=== PATIENT | female | born 1970 | race American Indian/Alaskan Native ===

== ENCOUNTER 2019-03-05 17:24 | Inpatient (IN) | payer OTHER ==
[2019-03-05] MEDS ORDERED: ASPIRIN 325 MG TAB PO ONE (17:46)
--- NOTE | 2019-03-05 17:49 | Event Note ---
ED Screening Note Date of service: 03/05/19 Time: 17:44 ED Screening Note: This is a 49 y.o. F. that presents to the ER with chest pain started today while at work today. PMH of sleep apnea, PE, CABG on blood thinners, HLD, depression, HTN, insomnia Patient also reports blood in stool last night. This initial assessment/diagnostic orders/clinical plan/treatment(s) is/are subject to change based on patients health status, clinical progression and re- assessment by fellow clinical providers in the ED. Further treatment and workup at subsequent clinical providers discretion. Patient/guardian urged not to elope from the ED as their condition may be serious if not clinically assessed and managed. Initial orders include: Labs, EKG, & CXR
--- NOTE | 2019-03-05 18:28 | XRay Report ---
CHEST 2 VIEWS INDICATION / CLINICAL INFORMATION: Chest Pain. Shortness of breath. Left chest pain under the breast . History of CABG and PE. COMPARISON: None available. FINDINGS: Frontal and lateral chest radiographs demonstrate normal cardiomediastinal silhouette. Post -CABG changes. Right hemidiaphragm approximately 3 cm higher than the left. Clear lungs. Mild multile oseas thoracic spine degenerative spurring. Upper abdominal presumed cholecystectomy clips. IMPRESSION: No acute chest process with few incidental findings, as above. Signer Name: Srikanth Graham Signed: 03/05/2019 6:23 PM Workstation Name: [id number]
[2019-03-05 18:55] LABS: Hematocrit 40.9 % (30.3-42.9); Hemoglobin 13.6 gm/dl (10.1-14.3); Mean Corpuscular HGB Conc 33 % (30-34); Mean Corpuscular Volume 94 fl (79-97); Platelet Count 226 K/mm3 (140-440); Red Blood Count 4.35 M/mm3 (3.65-5.03); Red Cell Distribution Width 13.6 % (13.2-15.2)
[2019-03-05 19:30] LABS: BUN/Creatinine Ratio 10; Blood Urea Nitrogen 8 mg/dL (7-17); Calcium 9.4 mg/dL (8.4-10.2); Hemolysis Index 35
[2019-03-05 19:47] LABS: Eosinophils % (Manual) 0 % (0.0-4.3); Total Cells Counted 100
[2019-03-05 19:48] LABS: Anisocytosis 1+
[2019-03-05] MEDS ORDERED: NITROGLYCERIN 2% OINT 1 GM TP ONE (20:49)
[2019-03-05] MEDS ORDERED: fentaNYL 100 MCG/2 ML INJ IV ONE (20:49)
--- NOTE | 2019-03-05 20:57 | Emergency Department Report ---
HPI - General Chief Complaint: Chest Pain Time Seen by Provider: 03/05/19 17:43 - HPI HPI: Room 22 The patient is a 49-year-old female presenting with chief complaint chest pain and dyspnea on exertion. The patient states she tripped and fell forward 2 days ago landing on her knees. Patient states she's had some aches and pains since the fall including bilateral knees right greater than left. The patient states the past several days she's had worsening shortness of breath and dyspnea on exertion to the point where she has to sleep on extra pillows while using her CPAP. Today the patient states she developed intermittent chest pressure associ ated with nausea but no vomiting or diaphoresis. Patient currently gets her chest pain score of 5/10. Patient is currently on Xarelto for PE and is status post 2 vessel CABG approximately 6 years ago Location: [See above] Duration: [See above] Quality: [See above] Severity: [See above] Timing: [See above] Context: [See above] Modifying factors: [See above] Associated signs and symptoms: [see above] ED Past Medical Hx - Past Medical History Previous Medical History?: Yes Hx Pulmonary Embolism: Yes - Surgical History Past Surgical History?: Yes Hx Open Heart Surgery: Yes - Family History Family history: no significant - Social History Smoking Status: Never Smoker Substance Use Type: None (denies illicit drug use) ED Review of Systems ROS: Stated complaint: CHEST PAIN/SOB/BLOOD IN STOOL Other details as noted in HPI Constitutional: denies: diaphoresis Eyes: denies: eye pain ENT: denies: throat pain Respiratory: shortness of breath, SOB with exertion Cardiovascular: chest pain, dyspnea on exertion Endocrine: no symptoms reported Gastrointestinal: nausea. denies: abdominal pain, vomiting Genitourinary: denies: dysuria Musculoskeletal: arthralgia Skin: denies: lesions Neurological: denies: headache Physical Exam - Physical Exam Vital Signs: Vital Signs 03/05/19 03/05/19 03/05/19 17:41 20:15 20:16 Temperature 97.6 F Pulse Rate 55 L 75 73 Respiratory 20 18 22 Rate Blood Pressure 138/76 Blood Pressure 148/91 [Right] O2 Sat by Pulse 96 99 99 Oximetry 03/05/19 03/05/19 03/05/19 20:18 20:20 20:25 Temperature Pulse Rate 73 76 Respiratory 24 24 18 Rate Blood Pressure 138/76 138/76 Blood Pressure [Right] O2 Sat by Pulse 98 98 Oximetry Physical Exam: GENERAL: The patient is well-developed well-nourished female lying on stretcher not appearing to be in acute distress. [] HEENT: Normocephalic. Atraumatic. Extraocular motions are intact. Patient has moist mucous membranes. NECK: Supple. Trachea midline CHEST/LUNGS: Clear to auscultation. There is no respiratory distress noted. HEART/CARDIOVASCULAR: Regular. There is no tachycardia. There is no gallop rub or murmur. ABDOMEN: Abdomen is soft, nontender. Patient has normal bowel sounds. There is no abdominal distention. SKIN: There is no rash. There is no edema. There is no diaphoresis. NEURO: The patient is awake, alert, and oriented. The patient is cooperative. The patient has normal speech MUSCULOSKELETAL: There is tenderness to palpation of bilateral knees. There is no evidence of acute injury. ED Course Vital Signs 03/05/19 03/05/19 03/05/19 17:41 20:15 20:16 Temperature 97.6 F Pulse Rate 55 L 75 73 Respiratory 20 18 22 Rate Blood Pressure 138/76 Blood Pressure 148/91 [Right] O2 Sat by Pulse 96 99 99 Oximetry 03/05/19 03/05/19 03/05/19 20:18 20:20 20:25 Temperature Pulse Rate 73 76 Respiratory 24 24 18 Rate Blood Pressure 138/76 138/76 Blood Pressure [Right] O2 Sat by Pulse 98 98 Oximetry ED Medical Decision Making - Lab Data Result diagrams: 03/05/19 18:12 03/05/19 18:12 - EKG Data -: EKG Interpreted by Me EKG shows normal: sinus rhythm Rate: normal - EKG Data When compared to previous EKG there are: previous EKG unavailable Interpretation: nonspecific ST-T wave nia (T-wave inversions in leads 1, aVL, V2) - Radiology Data Radiology results: report reviewed (chest x-ray), image reviewed (chest x-ray, bilateral knee x-ray) interpreted by me: Chest x-ray-no focal infiltrate, no pneumothorax Bilateral knee x-ray-no acute fracture seen [facility] [address] [place] [address] XRay Report Signed Patient: NENA CADET MR#: [id number] : 1970 Acct:[id number] Age/Sex: 49 / F ADM Date: 03/05/19 Loc: ED Attending Dr: Ordering Physician: RUI MARCANO Date of Service: 03/05/19 Procedure(s): XR chest routine 2V Accession Number(s): [id number] cc: RUI MARCANO Fluoro Time In Minutes: CHEST 2 VIEWS INDICATION / CLINICAL INFORMATION: Chest Pain. Shortness of breath. Left chest pain under the breast. History of CABG and PE. COMPARISON: None available. FINDINGS: Frontal and lateral chest radiographs demonstrate normal cardiomediastinal silhouette. Post-CABG changes. Right hemidiaphragm approximately 3 cm higher than the left. Clear lungs. Mild multilevel thoracic spine degenerative spurring. Upper abdominal presumed cholecystectomy clips. IMPRESSION: No acute chest process with few incidental findings, as above. Signer Name: Tiara De La Fuente Signed: 03/05/2019 6:23 PM Workstation Name: [id number] Transcribed By: RS Dictated By: TIARA DE LA FUENTE MD Electronically Authenticated By: TIARA DE LA FUENTE MD Signed Date/Time: 03/05/191822 DD/ 20 TD/TT: - Differential Diagnosis ACS, pericarditis, GERD, CHF Critical care attestation.: If time is entered above; I have spent that time in minutes in the direct care of this critically ill patient, excluding procedure time. ED Disposition Clinical Impression: Chest pain, Contusion of left knee, Contusion of right knee Disposition: OP ADMIT IP TO THIS HOSP Is pt being admited?: Yes Does the pt Need Aspirin: Yes Condition: Fair Instructions: Chest Pain (ED) Time of Disposition: 21:14 (hospitalist paged (Dr Islas))
--- NOTE | 2019-03-05 21:21 | XRay Report ---
BILATERAL KNEES 4 VIEWS INDICATION / CLINICAL INFORMATION: Bilateral knee pain after fall. COMPARISON: None available. FINDINGS: BONES and JOINT(S): No acute fracture or subluxation. No significant arthritis. SOFT TISSUES: No acute abnormality. A surgical clip is seen posteriorly and medially along the right knee. ADDITIONAL FINDINGS: None. IMPRESSION: No acute abnormality of the knees. Signer Name: Nikolas Gonzales MD Signed: 03/05/2019 9:16 PM Workstation Name: [id number]
[2019-03-05] MEDS ORDERED: diphenhydrAMINE 50 MG/ML VIAL IV ONE (21:41)
[2019-03-05] MEDS ORDERED: NITROGLYCERIN 0.4 MG TAB SUBL SL PRN (22:29)
[2019-03-05] MEDS ORDERED: ACETAMINOPHEN 325 MG TAB PO PRN (22:32)
[2019-03-05] MEDS ORDERED: ONDANSETRON 4 MG/2 ML INJ IV PRN (22:33)
[2019-03-06] MEDS: MORPHINE 2 MG/1 ML INJ IV PRN ×4 (00:56→23:31)
[2019-03-06 01:03] LABS: Hematocrit 40.1 % (30.3-42.9)
[2019-03-06 01:52] LABS: Creatine Kinase MB 1.3 ng/mL (0.0-4.0)
[2019-03-06] MEDS: diphenhydrAMINE 50 MG/ML VIAL IV PRN ×4 (05:54→23:31)
--- NOTE | 2019-03-06 05:56 | History and Physical Report ---
CHIEF COMPLAINT: Chest pain. HISTORY OF PRESENT ILLNESS: The patient is a 49-year-old female who said she has been having dull chest pain located in the retrosternal and precordial area. The patient stated also that she tripped and fell with face down 2 days ago and has had aches and pains since that fall and this included pain that involves the knees with more on the right than the left. The patient said the chest pain is associated with shortness of breath and also there is associated orthopnea. The patient said the chest pain is intermittent and also associated with nausea, but no vomiting or diaphoresis, and the patient rated her chest pain as 5/10. PAST MEDICAL HISTORY: Pertinent for pulmonary embolism and coronary artery disease. PAST SURGICAL HISTORY: Pertinent for open heart surgery. FAMILY HISTORY: Noncontributory. SOCIAL HISTORY: The patient does not smoke, does not drink alcohol and does not use illicit drugs. MEDICATIONS: The patient is on atorvastatin 40 mg by mouth daily, carvedilol 12.5 mg by mouth twice daily, linaclotide or Linzess 75 mcg by mouth at bedtime, Paxil 20 mg by mouth daily, Xarelto 20 mg by mouth daily, trazodone 50 mg by mouth at bedtime. ALLERGIES: THE PATIENT IS ALLERGIC TO PENICILLIN. REVIEW OF SYSTEMS: CONSTITUTIONAL: There is no fever, no chills, no diaphoresis. HEENT: There is no headache or sore throat. CARDIOVASCULAR SYSTEM: There is chest pain, but no orthopnea. RESPIRATORY SYSTEM: There is shortness of breath and no cough. GASTROINTESTINAL SYSTEM: There is nausea, but no nausea, no vomiting, no abdominal pain, diarrhea or constipation; however, the patient reported having blood in the stool that occurred a day prior to presentation and in the morning of presentation NEUROLOGICAL SYSTEM: There is no numbness, no dizziness, no altered mental status. MUSCULOSKELETAL SYSTEM: There is pain in both knee areas with no joint swelling. DERMATOLOGICAL SYSTEM: There is no skin rash or itching. GENITOURINARY SYSTEM: There is no dysuria, hematuria, or flank pain. Rest of system review is normal. PHYSICAL EXAMINATION: GENERAL: At the time of exam, the patient was found to be alert, oriented x 3 and not in acute distress. VITAL SIGNS: At the initial time of presentation showed temperature of 97.6 degrees Fahrenheit, pulse of 55, respirations 20, blood pressure 148/91, O2 sat of 96% on room air. HEENT: Pupils to be equal, round, reactive to light and accommodating. Extraocular muscles are intact. NECK: Supple with no JVD or carotid bruit. CARDIOVASCULAR SYSTEM: Showed normal first and second heart sounds with no gallops or murmurs. RESPIRATORY SYSTEM: Showed good air entry on both sides of the lungs with no abnormal breath sounds. GASTROINTESTINAL SYSTEM: Show abdomen to be full, soft, nontender with no organomegaly or rigidity. NEUROLOGIC: Shows no focal deficit. MUSCULOSKELETAL SYSTEM: Show no joint swelling or tenderness. DERMATOLOGICAL SYSTEM: Show no skin rash. GENITOURINARY SYSTEM: Showing no costovertebral angle tenderness. PERTINENT LABORATORY AND IMAGING STUDIES: The patient had chest x-ray done that shows no acute cardiopulmonary process. Also, the patient had knee x-ray done that showed no acute abnormalities. Lab results, the patient has CBC done with normal white count, normal hemoglobin and normal hematocrit with CBC differential showing elevated lymphocyte count of 49% and elevated monocyte count of 9%. The patient's chemistry was unremarkable. The patient's cardiac enzymes were also unremarkable. Brain natriuretic peptide level came back unremarkable. DIAGNOSES: 1. Chest pain. 2. Rectal bleeding. PLAN OF CARE: 1. The patient will be admitted to telemetry. 2. The patient will have serial cardiac enzyme involving troponin, total CK, and CK-MB checked every 6 hours x 2 more levels. 3. The patient will remain n.p.o. and will have a Lexiscan stress test. 4. The patient will remain n.p.o. 5. The patient will have Cardiology consult with Dr. Serrano. 6. The patient will have a GI consult with [facility] with Dr. Randy Savage listed. 7. The patient will be on IV morphine 2 mg every 3 hours as needed for pain and IV Zofran 4 mg every 8 hours for nausea and vomiting. 8. The patient will be on nitro paste half inch to anterior chest wall q.i.d. and will be on Nitrostat 0.4 mg sublingual every 5 minutes as needed for breakthrough chest pain. 9. The patient will be on Tylenol 650 mg by mouth every 4 hours as needed for fever and headache. 10. The patient will be on oxygen by nasal cannula 2 liters per minute. 11. The patient will not be placed on heparin or aspirin because of rectal bleed. JOB# [id number] OCN/NTS
[2019-03-06 07:17] LABS: Hematocrit 37.8 % (30.3-42.9); Hemoglobin 12.8 gm/dl (10.1-14.3)
[2019-03-06 07:35] LABS: Creatine Kinase MB 1.4 ng/mL (0.0-4.0)
--- NOTE | 2019-03-06 09:22 | Progress Note ---
Assessment and Plan Assessment and plan: Patient is a 49 yo woman with a history of PINA on CPAP, PE on Xarelto, HLD, depression, HTN, insomnia and CABG who presented to [facility] ED with chest pains and sob. She had a mechanical fall 2 days ago, she tripped while exercising/walking and injured her knees. She fell forward and landed on her stomach. She that fall she has been feeling poorly. After the fall she noticed maroon like blood in the toliet bowel/Bm, very small amount x 2 episodes associated with abd pains. * 2v CXR IMPRESSION: No acute chest process with few incidental findings (Right hemidiaphragm approximately 3 cm higher than the left. Clear lungs. Mild multilevel thoracic spine degenerative spurring. Upper abdominal presumed ch olecystectomy clips) * Bilateral knee x-ray-no acute fracture seen Chest pains: stress test Rectal bleeding per Dr. Islas without any specifics: GI was consulted, more collateral history needed Bilateral breast ulcers: consult wound care H/O PE on Anticoagulation Mechanical fall with bilateral knee pains: tylenol for pain History Interval history: Patient was seen and examined. Follow-up on current diagnosis of CP. No overnight events reported to me. Patient denies any nausea/vomiting or severe headaches. Imaging, nursing note, chart, labs and old chart reviewed. Discussed with patient. Hospitalist Physical - Physical exam Narrative exam: Gen: WDWN, NAD, Awake, Alert, Orientated HEENT: NCAT, EOMI, PERRL, OP Clear Neck: supple, no adenopathy, no thyromegaly, no JVD CVS/Heart: RRR, normal S1S2, pulses present bilaterally Chest/Lungs: CTA B, Symmetrical chest expansion, good air entry bilaterally GI/Abdomen: soft, NTND, good bowel sounds, no guarding or rebound /Bladder: no suprapubic tenderness, no CVA or paraspinal tenderness Extermity/Skin: 2 swallow left breast nickel size ulcers MSK: FROM x 4, bilateral knee tender Neuro: CN 2-12 grossly intact, no new focal deficits Psych: calm - Constitutional Vitals: Temp Pulse Resp BP Pulse Ox 97.5 F L 74 14 126/78 95 03/06/19 07:42 03/06/19 07:42 03/06/19 07:42 03/06/19 07:42 03/06/19 07:42 Results - Labs CBC & Chem 7: 03/06/19 06:46 03/05/19 18:12 Labs: Laboratory Last Values WBC 4.6 K/mm3 (4.5-11.0) 03/05/19 18:12 RBC 4.35 M/mm3 (3.65-5.03) 03/05/19 18:12 Hgb 12.8 gm/dl (10.1-14.3) 03/06/19 06:46 Hct 37.8 % (30.3-42.9) 03/06/19 06:46 MCV 94 fl (79-97) 03/05/19 18:12 MCH 31 pg (28-32) 03/05/19 18:12 MCHC 33 % (30-34) 03/05/19 18:12 RDW 13.6 % (13.2-15.2) 03/05/19 18:12 Plt Count 226 K/mm3 (140-440) 03/05/19 18:12 Lymph % (Auto) [place] 03/05/19 18:12 Add Manual Diff Complete 03/05/19 18:12 Total Counted 100 03/05/19 18:12 Seg Neutrophils % [place] 03/05/19 18:12 Seg Neuts % (Manual) 40.0 % (40.0-70.0) 03/05/19 18:12 0 % 03/05/19 18:12 49.0 % (13.4-35.0) H 03/05/19 18:12 Reactive Lymphs % (Man) 0 % 03/05/19 18:12 9.0 % (0.0-7.3) H 03/05/19 18:12 0 % (0.0-4.3) 03/05/19 18:12 1.0 % (0.0-1.8) 03/05/19 18:12 0 % 03/05/19 18:12 1.0 % 03/05/19 18:12 0 % 03/05/19 18:12 0 % 03/05/19 18:12 Nucleated RBC % Not Reportable 03/05/19 18:12 Seg Neutrophils # Man 1.8 K/mm3 (1.8-7.7) 03/05/19 18:12 Band Neutrophils # 0.0 K/mm3 03/05/19 18:12 2.3 K/mm3 (1.2-5.4) 03/05/19 18:12 Abs React Lymphs (Man) 0.0 K/mm3 03/05/19 18:12 0.4 K/mm3 (0.0-0.8) 03/05/19 18:12 0.0 K/mm3 (0.0-0.4) 03/05/19 18:12 0.0 K/mm3 (0.0-0.1) 03/05/19 18:12 0.0 K/mm3 03/05/19 18:12 0.0 K/mm3 03/05/19 18:12 0.0 K/mm3 03/05/19 18:12 Blast Cells # 0.0 K/mm3 03/05/19 18:12 WBC Morphology Not Reportable 03/05/19 18:12 Hypersegmented Neuts Not Reportable 03/05/19 18:12 Hyposegmented Neuts Not Reportable 03/05/19 18:12 Hypogranular Neuts Not Reportable 03/05/19 18:12 Not Reportable 03/05/19 18:12 Not Reportable 03/05/19 18:12 Not Reportable 03/05/19 18:12 Not Reportable 03/05/19 18:12 Not Reportable 03/05/19 18:12 Not Reportable 03/05/19 18:12 Appears normal 03/05/19 18:12 Not Reportable 03/05/19 18:12 Plt Clumps, EDTA Not Reportable 03/05/19 18:12 Not Reportable 03/05/19 18:12 Not Reportable 03/05/19 18:12 Not Reportable 03/05/19 18:12 Plt Morphology Comment Not Reportable 03/05/19 18:12 RBC Morphology Not Reportable 03/05/19 18:12 Dimorphic RBCs Not Reportable 03/05/19 18:12 Not Reportable 03/05/19 18:12 Not Reportable 03/05/19 18:12 Not Reportable 03/05/19 18:12 1+ 03/05/19 18:12 Not Reportable 03/05/19 18:12 Not Reportable 03/05/19 18:12 Not Reportable 03/05/19 18:12 Not Reportable 03/05/19 18:12 Not Reportable 03/05/19 18:12 Not Reportable 03/05/19 18:12 Not Reportable 03/05/19 18:12 Not Reportable 03/05/19 18:12 Not Reportable 03/05/19 18:12 Not Reportable 03/05/19 18:12 Not Reportable 03/05/19 18:12 Not Reportable 03/05/19 18:12 Not Reportable 03/05/19 18:12 Not Reportable 03/05/19 18:12 Not Reportable 03/05/19 18:12 Acanthocytes (Spur) Not Reportable 03/05/19 18:12 Rouleaux Not Reportable 03/05/19 18:12 Not Reportable 03/05/19 18:12 Not Reportable 03/05/19 18:12 Not Reportable 03/05/19 18:12 Not Reportable 03/05/19 18:12 Hem Pathologist Commnt No 03/05/19 18:12 Sodium 142 mmol/L (137-145) 03/05/19 18:12 Potassium 3.7 mmol/L (3.6-5.0) 03/05/19 18:12 Chloride 101.8 mmol/L (98-107) 03/05/19 18:12 Carbon Dioxide 22 mmol/L (22-30) 03/05/19 18:12 22 mmol/L 03/05/19 18:12 BUN 8 mg/dL (7-17) 03/05/19 18:12 0.8 mg/dL (0.7-1.2) 03/05/19 18:12 Estimated GFR > 60 ml/min 03/05/19 18:12 10 % 03/05/19 18:12 Glucose 115 mg/dL (65-100) H 03/05/19 18:12 Calcium 9.4 mg/dL (8.4-10.2) 03/05/19 18:12 172 units/L (30-135) H 03/06/19 06:46 CK-MB (CK-2) 1.4 ng/mL (0.0-4.0) 03/06/19 06:46 CK-MB (CK-2) Rel Index 0.8 (0-4) 03/06/19 06:46 < 0.010 ng/mL (0.00-0.029) 03/06/19 06:46 NT-Pro-B Natriuret Pep 12.93 pg/mL (0-450) 03/05/19 20:18 Active Medications - Current Medications Current Medications: Generic Name Dose Route Start Last Admin Trade Name Freq PRN Reason Stop Dose Admin Acetaminophen 650 mg 03/05/19 22:32 Tylenol PO Q4H PRN Headache Diphenhydramine HCl 25 mg 03/06/19 05:01 03/06/19 05:54 Benadryl IV 25 mg Q6H PRN Administration Itching Morphine Sulfate 2 mg 03/05/19 22:28 03/06/19 00:56 Morphine IV 2 mg Q3H PRN Administration Pain, Moderate (4-6) Nitroglycerin 0.5 inch 03/06/19 06:00 Nitro-Bid 2% TP QIDNTG MAYCOL Protocol Nitroglycerin 0.4 mg 03/05/19 22:29 Nitrostat SL .Q5MIN PRN Chest Pain Ondansetron HCl 4 mg 03/05/19 22:33 Zofran IV Q8H PRN Nausea And Vomiting
[2019-03-06] MEDS: NITROGLYCERIN 2% OINT 1 GM TP SCH ×2 (10:11→14:57)
--- NOTE | 2019-03-06 11:39 | Gastroenterology Consultation ---
History of Present Illness - Reason for Consult Consult date: 03/06/19 rectal bleeding Requesting physician: MAYUR COOK - History of Present Illness 49 yo female with pmh of HTN, CAD s/p CABG, h/o PE on xarelto, and chronic constipation on linzess every other day admitted for chest pain and sob. Gi consulted for 2 day h/o rectal bleeding. She reports having two episode of rectal bleeding (one on Friday and another episode on prior to admission). Reports abdominal pain/soreness after falling forward on her abdomen. No nausea/vomiting. Wants to eat. Follows up with [facility] office at [place] for chronic constipation and has been on linzess every other day. No BM today or yesterday. Last colonoscopy about 3 years and normal per patient. Medication list reviewed Past History Past Medical History: CAD, pulmonary embolism, other (constipation) Past Surgical History: CABG Medications and Allergies Allergies Allergy/AdvReac Type Severity Reaction Status Date / Time Penicillins Allergy Rash Verified 03/05/19 17:28 Home Medications Medication Instructions Recorded Confirmed Last Taken Type AtorvaSTATin [Lipitor] 40 mg PO QHS 03/05/19 03/05/19 Unknown History Carvedilol [Coreg] 12.5 mg PO BID 03/05/19 03/05/19 Unknown History Linaclotide [Linzess] 72 mcg PO QHS 03/05/19 03/05/19 Unknown History PARoxetine [Paxil] 20 mg PO DAILY 03/05/19 03/05/19 Unknown History Rivaroxaban [Xarelto] 20 mg PO QDAY 03/05/19 03/05/19 Unknown History traZODone [Desyrel] 50 mg PO QHS 03/05/19 03/05/19 Unknown History Active Meds: Active Medications Acetaminophen (Tylenol) 650 mg PO Q4H PRN PRN Reason: Headache Bisacodyl (Dulcolax) 10 mg PO QDAY PRN PRN Reason: Constipation Diphenhydramine HCl (Benadryl) 25 mg IV Q6H PRN PRN Reason: Itching Last Admin: 03/06/19 05:54 Dose: 25 mg Documented by: Morphine Sulfate (Morphine) 2 mg IV Q3H PRN PRN Reason: Pain, Moderate (4-6) Last Admin: 03/06/19 00:56 Dose: 2 mg Documented by: Nitroglycerin (Nitro-Bid 2%) 0.5 inch TP QIDNTG MAYCOL; Protocol Nitroglycerin (Nitrostat) 0.4 mg SL .Q5MIN PRN PRN Reason: Chest Pain Ondansetron HCl (Zofran) 4 mg IV Q8H PRN PRN Reason: Nausea And Vomiting Polyethylene Glycol (Miralax 3350) 17 gm PO QDAY [facility] Review of Systems - Review of Systems All systems: negative Constitutional: no weight loss Cardiovascular: chest pain Respiratory: shortness of breath Gastrointestinal: abdominal pain, constipation, BRBPR, hematochezia, no nausea, no vomiting Rectal: bleeding, no pain Neurological: weakness Exam - Constitutional Vital Signs: Temp Pulse Resp BP Pulse Ox 97.5 F L 74 14 126/78 100 03/06/19 07:42 03/06/19 07:42 03/06/19 07:42 03/06/19 07:42 03/06/19 09:23 General appearance: no acute distress - EENT Eyes: EOM intact ENT: hearing intact - Neck Neck: supple - Respiratory Respiratory effort: normal Respiratory: bilateral: CTA - Cardiovascular Rhythm: regular Heart Sounds: Present: S1 & S2 - Gastrointestinal General gastrointestinal: Present: soft, tender, non-distended - Integumentary Integumentary: Present: clear, warm - Neurologic Neurological: alert and oriented x3 - Labs CBC & Chem 7: 03/06/19 06:46 03/05/19 18:12 Lab Results: Laboratory Results - last 24 hr 03/05/19 03/05/19 03/05/19 18:12 18:12 20:18 WBC 4.6 RBC 4.35 Hgb 13.6 Hct 40.9 MCV 94 MCH 31 MCHC 33 RDW 13.6 Plt Count 226 Lymph % (Auto) Maintenance Equipment Operator Add Manual Diff Complete Total Counted 100 Seg Neutrophils % Maintenance Equipment Operator Seg Neuts % (Manual) 40.0 Band Neutrophils % 0 Lymphocytes % (Manual) 49.0 H Reactive Lymphs % (Man) 0 Monocytes % (Manual) 9.0 H Eosinophils % (Manual) 0 Basophils % (Manual) 1.0 Metamyelocytes % 0 Myelocytes % 1.0 Promyelocytes % 0 Blast Cells % 0 Nucleated RBC % Not Reportable Seg Neutrophils # Man 1.8 Band Neutrophils # 0.0 Lymphocytes # (Manual) 2.3 Abs React Lymphs (Man) 0.0 Monocytes # (Manual) 0.4 Eosinophils # (Manual) 0.0 Basophils # (Manual) 0.0 Metamyelocytes # 0.0 Myelocytes # 0.0 Promyelocytes # 0.0 Blast Cells # 0.0 WBC Morphology Not Reportable Hypersegmented Neuts Not Reportable Hyposegmented Neuts Not Reportable Hypogranular Neuts Not Reportable Smudge Cells Not Reportable Toxic Granulation Not Reportable Toxic Vacuolation Not Reportable Dohle Bodies Not Reportable Pelger-Huet Anomaly Not Reportable Lavell Rods Not Reportable Platelet Estimate Appears normal Clumped Platelets Not Reportable Plt Clumps, EDTA Not Reportable Large Platelets Not Reportable Giant Platelets Not Reportable Platelet Satelliting Not Reportable Plt Morphology Comment Not Reportable RBC Morphology Not Reportable Dimorphic RBCs Not Reportable Polychromasia Not Reportable Hypochromasia Not Reportable Poikilocytosis Not Reportable Anisocytosis 1+ Microcytosis Not Reportable Macrocytosis Not Reportable Spherocytes Not Reportable Pappenheimer Bodies Not Reportable Sickle Cells Not Reportable Target Cells Not Reportable Tear Drop Cells Not Reportable Ovalocytes Not Reportable Helmet Cells Not Reportable Bruno-Wacissa Bodies Not Reportable Ward Rings Not Reportable [place] Cells Not Reportable Bite Cells Not Reportable Crenated Cell Not Reportable Elliptocytes Not Reportable Acanthocytes (Spur) Not Reportable Rouleaux Not Reportable Hemoglobin C Crystals Not Reportable Schistocytes Not Reportable Malaria parasites Not Reportable Sriram Bodies Not Reportable Hem Pathologist Commnt No Sodium 142 Potassium 3.7 Chloride 101.8 Carbon Dioxide 22 Anion Gap 22 BUN 8 Creatinine 0.8 Estimated GFR > 60 BUN/Creatinine Ratio 10 Glucose 115 H Calcium 9.4 Total Creatine Kinase CK-MB (CK-2) CK-MB (CK-2) Rel Index Troponin T < 0.010 < 0.010 NT-Pro-B Natriuret Pep 03/05/19 03/05/19 03/06/19 20:18 23:53 00:00 WBC RBC Hgb Hct MCV MCH MCHC RDW Plt Count Lymph % (Auto) Add Manual Diff Total Counted Seg Neutrophils % Seg Neuts % (Manual) Band Neutrophils % Lymphocytes % (Manual) Reactive Lymphs % (Man) Monocytes % (Manual) Eosinophils % (Manual) Basophils % (Manual) Metamyelocytes % Myelocytes % Promyelocytes % Blast Cells % Nucleated RBC % Seg Neutrophils # Man Band Neutrophils # Lymphocytes # (Manual) Abs React Lymphs (Man) Monocytes # (Manual) Eosinophils # (Manual) Basophils # (Manual) Metamyelocytes # Myelocytes # Promyelocytes # Blast Cells # WBC Morphology Hypersegmented Neuts Hyposegmented Neuts Hypogranular Neuts Smudge Cells Toxic Granulation Toxic Vacuolation Dohle Bodies Pelger-Huet Anomaly Lavell Rods Platelet Estimate Clumped Platelets Plt Clumps, EDTA Large Platelets Giant Platelets Platelet Satelliting Plt Morphology Comment RBC Morphology Dimorphic RBCs Polychromasia Hypochromasia Poikilocytosis Anisocytosis Microcytosis Macrocytosis Spherocytes Pappenheimer Bodies Sickle Cells Target Cells Tear Drop Cells Ovalocytes Helmet Cells Bruno-Wacissa Bodies Ward Rings Doug Cells Bite Cells Crenated Cell Elliptocytes Acanthocytes (Spur) Rouleaux Hemoglobin C Crystals Schistocytes Malaria parasites Sriram Bodies Hem Pathologist Commnt Sodium Potassium Chloride Carbon Dioxide Anion Gap BUN Creatinine Estimated GFR BUN/Creatinine Ratio Glucose Calcium Total Creatine Kinase 178 H CK-MB (CK-2) 1.3 CK-MB (CK-2) Rel Index 0.7 Troponin T < 0.010 NT-Pro-B Natriuret Pep 12.93 03/06/19 03/06/19 03/06/19 00:30 06:46 06:46 WBC RBC Hgb 13.0 12.8 Hct 40.1 37.8 MCV MCH MCHC RDW Plt Count Lymph % (Auto) Add Manual Diff Total Counted Seg Neutrophils % Seg Neuts % (Manual) Band Neutrophils % Lymphocytes % (Manual) Reactive Lymphs % (Man) Monocytes % (Manual) Eosinophils % (Manual) Basophils % (Manual) Metamyelocytes % Myelocytes % Promyelocytes % Blast Cells % Nucleated RBC % Seg Neutrophils # Man Band Neutrophils # Lymphocytes # (Manual) Abs React Lymphs (Man) Monocytes # (Manual) Eosinophils # (Manual) Basophils # (Manual) Metamyelocytes # Myelocytes # Promyelocytes # Blast Cells # WBC Morphology Hypersegmented Neuts Hyposegmented Neuts Hypogranular Neuts Smudge Cells Toxic Granulation Toxic Vacuolation Dohle Bodies Pelger-Huet Anomaly Lavell Rods Platelet Estimate Clumped Platelets Plt Clumps, EDTA Large Platelets Giant Platelets Platelet Satelliting Plt Morphology Comment RBC Morphology Dimorphic RBCs Polychromasia Hypochromasia Poikilocytosis Anisocytosis Microcytosis Macrocytosis Spherocytes Pappenheimer Bodies Sickle Cells Target Cells Tear Drop Cells Ovalocytes Helmet Cells Bruno-Wacissa Bodies Ward Rings Doug Cells Bite Cells Crenated Cell Elliptocytes Acanthocytes (Spur) Rouleaux Hemoglobin C Crystals Schistocytes Malaria parasites Sriram Bodies Hem Pathologist Commnt Sodium Potassium Chloride Carbon Dioxide Anion Gap BUN Creatinine Estimated GFR BUN/Creatinine Ratio Glucose Calcium Total Creatine Kinase 172 H CK-MB (CK-2) 1.4 CK-MB (CK-2) Rel Index 0.8 Troponin T < 0.010 NT-Pro-B Natriuret Pep Assessment and Plan 49 yo female with pmh of HTN, CAD s/p CABG, h/o PE on xarelto, and chronic constipation on linzess every other day admitted for chest pain and sob. Gi con sulted for 2 day h/o rectal bleeding. # Rectal bleeding. - likely anorectal origin. h/o chronic constipation and on linzess every other day. - last BM yesterday morning prior to admission with blood in the stool. - H/H stable and normal. - no plans for colonoscopy at this time. - bowel regimen with miralax and dulcolax. - monitor H/H. - work up for chest pain
[2019-03-06] MEDS: POLYETHYLENE GLYCOL 3350 17 GM POWDER PO SCH (12:03)
[2019-03-06] MEDS: atenoloL 25 MG TAB PO SCH (17:48)
--- NOTE | 2019-03-07 04:56 | Consultation ---
REASON FOR EVALUATION: Chest pain. 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 Henry, comes to the Emergency Room complaining about chest discomfort. Yesterday morning, the patient had significant chest pain associated with difficulty in breathing and she has noticed intermittent chest pain with exertion within the past couple of days. Pain is described as tightness and pressure type of discomfort. Today, the chest pain is somewhat better. Yesterday, the pain lasted throughout the day intermittently. She also felt as though the heart is beating irregular. The patient also had difficulty in breathing. The patient is known to have coronary artery disease and had bypass surgery in [facility] about 6 years ago. Last stress test was apparently done about 3 years ago. The patient is known to have hypertension and hyperlipidemia for about 6 years. No history of diabetes. Recently, she tripped and fell and complains about leg pains. Two weeks following her bypass surgery 6 years ago, the patient had pulmonary embolism and after evaluated by team member, the patient was advised to be on long-term anticoagulants and she has been on Xarelto. The patient complains about bilateral knee pain. The patient is also known to have had sleep apnea and has been on CPAP. REVIEW OF SYSTEMS: HEAD, EYES, EARS, NOSE, THROAT: No symptoms. ENDOCRINE: No history of diabetes or thyroid problems. GASTROINTESTINAL: No abdominal pain, nausea, or vomiting today. Bowel habits have been regular. Rectal bleeding. The patient is patient is seen by Gastroenterology. GENITOURINARY: No symptoms. CENTRAL NERVOUS SYSTEM: No history of cerebrovascular accident or convulsive disorder. PERSONAL HISTORY: Nonsmoker, nonalcoholic. PHYSICAL EXAMINATION: GENERAL: Adult, overweight female, in no acute distress. HEAD, EYES, EARS, NOSE, AND THROAT: Unremarkable. NECK: Supple. No thyromegaly. Both carotids are palpable and equal. Neck veins are flat. CHEST: Symmetrical. LUNGS: Essentially clear. HEART: S1 and S2 are heard well. No S3. ABDOMEN: Soft, nontender, no hepatosplenomegaly. Peristaltic sounds are heard well. EXTREMITIES: No edema or calf tenderness. No digital clubbing. SPINE AND BACK: Unremarkable. LABORATORY DATA: EKG sinus rhythm, nonspecific ST-T abnormalities are present, no acute changes are present. WBC 4.6, hemoglobin 13.6, hematocrit 40.9. Sodium 142, potassium 3.7, BUN 8, creatinine 0.8, blood sugar 115. Troponin x 2 negative. BNP 12.93. IMPRESSION: 1. Chest pain, etiology uncertain. The patient is known to have coronary artery disease and had bypass surgery done 6 years ago. In view of the exertional chest pain and difficulty in breathing, we will obtain a nuclear stress test as well as echocardiogram. The patient cannot walk because of her knee pains due to recent fall. 2. Shortness of breath. We will obtain an echo and review the same once it is available. 3. Hypertension. 4. Hyperlipidemia. 5. Pulmonary embolism with a recommendation of long-term anticoagulants by team member in the past. 6. Obesity. RECOMMENDATIONS: The patient is seen for cardiac evaluation. At present, cardiac status appears to be stable. No definite evidence of acute myocardial infarction. She still complains about chest discomfort. Her current medications are reviewed. We will add a long-acting nitrate and small dose of beta-mary. The patient will be monitored and followed closely with you. Thank you, Dr. Verma for allowing me to participate in the care of this pleasant young lady. JOB# [id number] KB/NTS
[2019-03-07] MEDS: NITROGLYCERIN 2% OINT 1 GM TP SCH ×5 (06:00→17:56)
--- NOTE | 2019-03-07 07:24 | Progress Note ---
Assessment and Plan Assessment and plan: Patient is a 49 yo woman with a history of PINA on CPAP, PE on Xarelto, HLD, depression, HTN, insomnia and CABG who presented to [facility] ED with chest pains and sob. She had a mechanical fall 2 days ago, she tripped while exercising/walking and injured her knees. She fell forward and landed on her stomach. She that fall she has been feeling poorly. After the fall she noticed maroon like blood in the toliet bowel/Bm, very small amount x 2 episodes associated with abd pains. * 2v CXR IMPRESSION: No acute chest process with few incidental findings (Right hemidiaphragm approximately 3 cm higher than the left. Clear lungs. Mild multilevel thoracic spine degenerative spurring. Upper abdominal presumed ch olecystectomy clips) * Bilateral knee x-ray-no acute fracture seen Chest pains: stress test not ordered by private equity associate, Dr. Islas, for Friday, Cardiology consulted, await evaluation, stress test not done on Friday Rectal bleeding: GI consulted, input noted Bilateral breast ulcers: consult wound care H/O PE on Anticoagulation: resume Xarelto Mechanical fall with bilateral knee pains: tylenol for pain History Interval history: Patient was seen and examined. Follow-up on current diagnosis of CP. No overnight events reported to me. Patient denies any nausea/vomiting or severe headaches. Imaging, nursing note, chart, labs and old chart reviewed. Discussed with patient. Hospitalist Physical - Physical exam Narrative exam: Gen: WDWN, NAD, Awake, Alert, Orientated HEENT: NCAT, EOMI, PERRL, OP Clear Neck: supple, no adenopathy, no thyromegaly, no JVD CVS/Heart: RRR, normal S1S2, pulses present bilaterally Chest/Lungs: CTA B, Symmetrical chest expansion, good air entry bilaterally GI/Abdomen: soft, NTND, good bowel sounds, no guarding or rebound /Bladder: no suprapubic tenderness, no CVA or paraspinal tenderness Extermity/Skin: 2 swallow left breast nickel size ulcers MSK: FROM x 4, bilateral knee tender Neuro: CN 2-12 grossly intact, no new focal deficits Psych: calm - Constitutional Vitals: Temp Pulse Resp BP Pulse Ox 97.9 F 78 20 100/64 92 03/07/19 04:29 03/07/19 04:29 03/07/19 04:29 03/07/19 04:29 03/07/19 04:29 Results - Labs CBC & Chem 7: 03/07/19 09:25 03/05/19 18:12 Labs: Laboratory Last Values WBC 4.6 K/mm3 (4.5-11.0) 03/05/19 18:12 RBC 4.35 M/mm3 (3.65-5.03) 03/05/19 18:12 Hgb 12.8 gm/dl (10.1-14.3) 03/06/19 06:46 Hct 37.8 % (30.3-42.9) 03/06/19 06:46 MCV 94 fl (79-97) 03/05/19 18:12 MCH 31 pg (28-32) 03/05/19 18:12 MCHC 33 % (30-34) 03/05/19 18:12 RDW 13.6 % (13.2-15.2) 03/05/19 18:12 Plt Count 226 K/mm3 (140-440) 03/05/19 18:12 Lymph % (Auto) Concentrator Operator 03/05/19 18:12 Add Manual Diff Complete 03/05/19 18:12 Total Counted 100 03/05/19 18:12 Seg Neutrophils % Concentrator Operator 03/05/19 18:12 Seg Neuts % (Manual) 40.0 % (40.0-70.0) 03/05/19 18:12 0 % 03/05/19 18:12 49.0 % (13.4-35.0) H 03/05/19 18:12 Reactive Lymphs % (Man) 0 % 03/05/19 18:12 9.0 % (0.0-7.3) H 03/05/19 18:12 0 % (0.0-4.3) 03/05/19 18:12 1.0 % (0.0-1.8) 03/05/19 18:12 0 % 03/05/19 18:12 1.0 % 03/05/19 18:12 0 % 03/05/19 18:12 0 % 03/05/19 18:12 Nucleated RBC % Not Reportable 03/05/19 18:12 Seg Neutrophils # Man 1.8 K/mm3 (1.8-7.7) 03/05/19 18:12 Band Neutrophils # 0.0 K/mm3 03/05/19 18:12 2.3 K/mm3 (1.2-5.4) 03/05/19 18:12 Abs React Lymphs (Man) 0.0 K/mm3 03/05/19 18:12 0.4 K/mm3 (0.0-0.8) 03/05/19 18:12 0.0 K/mm3 (0.0-0.4) 03/05/19 18:12 0.0 K/mm3 (0.0-0.1) 03/05/19 18:12 0.0 K/mm3 03/05/19 18:12 0.0 K/mm3 03/05/19 18:12 0.0 K/mm3 03/05/19 18:12 Blast Cells # 0.0 K/mm3 03/05/19 18:12 WBC Morphology Not Reportable 03/05/19 18:12 Hypersegmented Neuts Not Reportable 03/05/19 18:12 Hyposegmented Neuts Not Reportable 03/05/19 18:12 Hypogranular Neuts Not Reportable 03/05/19 18:12 Not Reportable 03/05/19 18:12 Not Reportable 03/05/19 18:12 Not Reportable 03/05/19 18:12 Not Reportable 03/05/19 18:12 Not Reportable 03/05/19 18:12 Not Reportable 03/05/19 18:12 Appears normal 03/05/19 18:12 Not Reportable 03/05/19 18:12 Plt Clumps, EDTA Not Reportable 03/05/19 18:12 Not Reportable 03/05/19 18:12 Not Reportable 03/05/19 18:12 Not Reportable 03/05/19 18:12 Plt Morphology Comment Not Reportable 03/05/19 18:12 RBC Morphology Not Reportable 03/05/19 18:12 Dimorphic RBCs Not Reportable 03/05/19 18:12 Not Reportable 03/05/19 18:12 Not Reportable 03/05/19 18:12 Not Reportable 03/05/19 18:12 1+ 03/05/19 18:12 Not Reportable 03/05/19 18:12 Not Reportable 03/05/19 18:12 Not Reportable 03/05/19 18:12 Not Reportable 03/05/19 18:12 Not Reportable 03/05/19 18:12 Not Reportable 03/05/19 18:12 Not Reportable 03/05/19 18:12 Not Reportable 03/05/19 18:12 Not Reportable 03/05/19 18:12 Not Reportable 03/05/19 18:12 Not Reportable 03/05/19 18:12 Not Reportable 03/05/19 18:12 Not Reportable 03/05/19 18:12 Not Reportable 03/05/19 18:12 Not Reportable 03/05/19 18:12 Acanthocytes (Spur) Not Reportable 03/05/19 18:12 Rouleaux Not Reportable 03/05/19 18:12 Not Reportable 03/05/19 18:12 Not Reportable 03/05/19 18:12 Not Reportable 03/05/19 18:12 Not Reportable 03/05/19 18:12 Hem Pathologist Commnt No 03/05/19 18:12 Sodium 142 mmol/L (137-145) 03/05/19 18:12 Potassium 3.7 mmol/L (3.6-5.0) 03/05/19 18:12 Chloride 101.8 mmol/L (98-107) 03/05/19 18:12 Carbon Dioxide 22 mmol/L (22-30) 03/05/19 18:12 22 mmol/L 03/05/19 18:12 BUN 8 mg/dL (7-17) 03/05/19 18:12 0.8 mg/dL (0.7-1.2) 03/05/19 18:12 Estimated GFR > 60 ml/min 03/05/19 18:12 10 % 03/05/19 18:12 Glucose 115 mg/dL (65-100) H 03/05/19 18:12 Calcium 9.4 mg/dL (8.4-10.2) 03/05/19 18:12 172 units/L (30-135) H 03/06/19 06:46 CK-MB (CK-2) 1.4 ng/mL (0.0-4.0) 03/06/19 06:46 CK-MB (CK-2) Rel Index 0.8 (0-4) 03/06/19 06:46 < 0.010 ng/mL (0.00-0.029) 03/06/19 06:46 NT-Pro-B Natriuret Pep 12.93 pg/mL (0-450) 03/05/19 20:18 Active Medications - Current Medications Current Medications: Generic Name Dose Route Start Last Admin Trade Name Freq PRN Reason Stop Dose Admin Acetaminophen 650 mg 03/05/19 22:32 Tylenol PO Q4H PRN Headache Atenolol 25 mg 03/06/19 13:00 03/06/19 17:48 Tenormin PO 25 mg QDAY MAYCOL Administration Bisacodyl 10 mg 03/06/19 11:37 Dulcolax PO QDAY PRN Constipation Diphenhydramine HCl 25 mg 03/06/19 05:01 03/06/19 23:31 Benadryl IV 25 mg Q6H PRN Administration Itching Morphine Sulfate 2 mg 03/05/19 22:28 03/06/19 23:31 Morphine IV 2 mg Q3H PRN Administration Pain, Moderate (4-6) Nitroglycerin 0.5 inch 03/06/19 06:00 03/06/19 10:11 Nitro-Bid 2% TP Not Given QIDNTG [facility] Protocol Nitroglycerin 0.4 mg 03/05/19 22:29 Nitrostat SL .Q5MIN PRN Chest Pain Ondansetron HCl 4 mg 03/05/19 22:33 Zofran IV Q8H PRN Nausea And Vomiting Polyethylene Glycol 17 gm 03/06/19 12:00 03/06/19 12:03 Miralax 3350 PO 17 gm QDAY MAYCOL Administration
[2019-03-07] MEDS: MORPHINE 2 MG/1 ML INJ IV PRN ×3 (08:03→20:54)
[2019-03-07] MEDS: diphenhydrAMINE 50 MG/ML VIAL IV PRN ×2 (08:04→20:54)
[2019-03-07 09:57] LABS: Hematocrit 40.2 % (30.3-42.9); Hemoglobin 13.1 gm/dl (10.1-14.3); Mean Corpuscular HGB Conc 33 % (30-34); Mean Corpuscular Volume 95 fl (79-97); Platelet Count 216 K/mm3 (140-440); Red Blood Count 4.25 M/mm3 (3.65-5.03)
--- NOTE | 2019-03-07 10:31 | Progress Note ---
Assessment and Plan Patient appears to be comfortable. Still has some chest discomfort. We will obtain a nuclear stress test tomorrow. Continue current management. We will administer Reviewed Rhythm Is Stable. Blood Pressure Is Well Controlled. - Patient Problems (1) Hypertension Current Visit: Yes Status: Acute (2) Hyperlipidemia Current Visit: Yes Status: Acute (3) Pulmonary embolism Current Visit: Yes Status: Acute (4) Chest pain Current Visit: Yes Status: Acute (5) Contusion of left knee Current Visit: Yes Status: Acute Subjective Date of service: 03/07/19 Interval history: Patient is feeling better. Still has some chest pains on exertion. Nuclear stress test tomorrow. Objective Vital Signs Temp Pulse Resp Resp BP Pulse Ox 03/07/19 08:16 20 03/07/19 08:15 78 03/07/19 08:03 20 03/07/19 07:50 97.5 F L 73 14 119/84 95 03/07/19 04:29 97.9 F 78 20 100/64 92 03/07/19 03:57 97 03/07/19 00:09 98.2 F 79 20 113/76 95 03/06/19 23:31 20 03/06/19 22:38 100 H 18 03/06/19 22:35 98 03/06/19 21:00 100 H 03/06/19 19:10 98.5 F 100 H 20 133/73 91 03/06/19 17:43 20 03/06/19 16:45 98.4 F 95 H 14 125/84 94 03/06/19 16:00 98 03/06/19 12:04 20 03/06/19 11:41 74 - Physical Examination General: Appears Well Neck: Positive: neck supple Cardiac: Positive: Regular Rhythm Abdomen: Positive: Soft Extremities: Present: normal - Labs and Meds CBC 03/07/19 Range/Units 09:25 WBC 4.2 L (4.5-11.0) K/mm3 RBC 4.25 (3.65-5.03) M/mm3 Hgb 13.1 (10.1-14.3) gm/dl Hct 40.2 (30.3-42.9) % Plt Count 216 (140-440) K/mm3
[2019-03-07] MEDS: atenoloL 25 MG TAB PO SCH (10:57)
[2019-03-07] MEDS: POLYETHYLENE GLYCOL 3350 17 GM POWDER PO SCH (10:57)
[2019-03-07] MEDS: RIVAROXABAN 20 MG TAB PO SCH (10:59)
[2019-03-07] MEDS: ASPIRIN 81 MG TAB CHEW PO SCH (11:02)
[2019-03-07] MEDS ORDERED: SENNOSIDES 8.6 MG TAB PO PRN (13:41)
--- NOTE | 2019-03-07 13:45 | Gastroenterology Progress Note ---
Assessment and Plan 49 yo female with pmh of HTN, CAD s/p CABG, h/o PE on xarelto, and chronic constipation on linzess every other day admitted for chest pain and sob. Gi consulted for 2 day h/o rectal bleeding. # Rectal bleeding. - likely anorectal origin. h/o chronic constipation and on linzess every other day. - small stool overnight without any blood. - H/H stable and normal. - no plans for colonoscopy at this time. Follow up outpatient GI clinic. - bowel regimen with miralax and dulcolax. Adding senna prn. - check CMP given patient reporting recent elevation of liver enzymes. - will sign off. please call with questions. Subjective Date of service: 03/07/19 Interval history: Patient reports having small stool without blood yesterday. Abdomen still sore. She states she had elevated liver enzymes recently checked with her PCP and was advised to follow up with her GI doctor. Objective - Constitutional Vitals: Temp Pulse Resp BP Pulse Ox 97.8 F 69 20 128/76 94 03/07/19 11:48 03/07/19 11:48 03/07/19 12:30 03/07/19 11:48 03/07/19 11:48 - EENT ENT: hearing intact, clear oral mucosa - Neck Neck: supple, normal ROM - Respiratory Respiratory effort: normal Respiratory: bilateral: CTA - Cardiovascular Rhythm: regular - Extremities Extremities: pulses intact, No edema, normal color, Full ROM - Gastrointestinal General gastrointestinal: Present: soft, non-tender, non-distended, normal bowel sounds - Integumentary Integumentary: Present: clear, warm, dry - Neurologic Neurological: alert and oriented x3 - Labs CBC & Chem 7: 03/07/19 09:25 03/05/19 18:12 Labs: Laboratory Results - last 24 hr 03/07/19 09:25 WBC 4.2 L RBC 4.25 Hgb 13.1 Hct 40.2 MCV 95 MCH 31 MCHC 33 RDW 14.0 Plt Count 216
[2019-03-07] MEDS ORDERED: NON-FORMULARY EACH (Linaclotide [Linzess] 72 MCG) PO SCH (22:00)
[2019-03-07] MEDS ORDERED: traZODone 50 MG TAB PO SCH (22:00)
[2019-03-08] MEDS ORDERED: REGADENOSON 0.4 MG/5 ML INJ IV ONE ×3 (08:30→09:27)
[2019-03-08] MEDS ORDERED: PARoxetine 20 MG TAB PO SCH (10:00)
[2019-03-08] MEDS: MORPHINE 2 MG/1 ML INJ IV PRN (10:39)
[2019-03-08] MEDS: diphenhydrAMINE 50 MG/ML VIAL IV PRN (10:40)
[2019-03-08] MEDS: atenoloL 25 MG TAB PO SCH (10:41)
[2019-03-08] MEDS: ASPIRIN 81 MG TAB CHEW PO SCH (10:41)
[2019-03-08] MEDS: RIVAROXABAN 20 MG TAB PO SCH (10:41)
[2019-03-08 10:43] VITALS: BP 124/76
[2019-03-08] MEDS: POLYETHYLENE GLYCOL 3350 17 GM POWDER PO SCH (10:43)
--- NOTE | 2019-03-08 10:45 | Progress Note ---
Assessment and Plan Chest pain AMI ruled out. Echo reviewed - EF 55-60%, mild LVH, trace MR, mild TR. S/p lexiscan MPI stress test this AM. Await findings. Dyspnea on exertion CXR with NAF. Echo reviewed - EF 55-60%, mild LVH, trace MR, mild TR. S/p lexiscan MPI stress test this AM. Await findings. H/o pulmonary embolism. Will obtain DDimer although DVT/PE unlikely as pt has been compliant with Xarelto. CAD s/p CABG in [facility] approx 6 years ago Pt follows [facility] cardiology. HTN Stable. HLP Continue statin. H/o pulmonary embolism diagnosed 2 weeks following CABG 6 years ago Anticoagulated with Xarelto Rectal bleeding GI following. H/H WNL. Per GI team, no plans for colonoscopy at this time. Follow up outpatient GI clinic. S/p mechanical fall with bilateral knee pain Management per primary. PINA Compliant with CPAP Obesity The patient has been seen in conjunction with Dr. Ch who agrees with the assessment and plan of care. Subjective Date of service: 03/08/19 Principal diagnosis: cp Interval history: pt seen s/p stress test, resting in bed, had no complaints overnight although she is currently c/o some chest pressure since administration of lexiscan this morning. in SR on tele. Objective Last Vital Signs Temp 97.6 F 03/07/19 23:12 Pulse 81 03/08/19 10:41 Resp 18 03/08/19 08:03 BP 124/76 03/08/19 10:41 Pulse Ox 94 03/07/19 23:12 - Physical Examination General: Appears Well Neck: Positive: neck supple Cardiac: Positive: Reg Rate and Rhythm, S1/S2 Lungs: Positive: Decreased Breath Sounds Neuro: Positive: Grossly Intact Abdomen: Positive: Soft Extremities: Present: normal - Imaging and Cardiology EKG: report reviewed, image reviewed - Telemetry EKG Rhythm: Sinus Rhythm
--- NOTE | 2019-03-08 13:29 | Discharge Summary ---
Providers - Providers Date of Admission: 03/05/19 22:21 Date of discharge: 03/08/19 Attending physician: TERRENCE SKINNER 03/05/19 22:26 Consult to Physician [CONS] Routine Comment: Consulting Provider: JAZ NEWBERRY Physician Instructions: Reason For Exam: BLOOD IN STOOL 03/05/19 22:34 Consult to Physician [CONS] Routine Comment: Consulting Provider: JOSE HERNANDEZ Physician Instructions: Reason For Exam: CHEST PAIN & HISTORY OF CARDIAC BYPASS, G.I BLEE 03/06/19 05:01 Consult to Wound/ET Nurse [CONS] Routine Reason For Exam: wound eval Primary care physician: SAMPLE MOUNTER Hospitalization Condition: Stable Hospital course: Patient is a 49 yo woman with a history of PINA on CPAP, PE on Xarelto, HLD, depression, HTN, insomnia and CABG who presented to [facility] ED with chest pains and sob. She had a mechanical fall 2 days ago, she tripped while exercising/walking and injured her knees. She fell forward and landed on her stomach. She that fall she has been feeling poorly. After the fall she noticed maroon like blood in the toliet bowel/Bm, very small amount x 2 episodes associated with abd pains. * 2v CXR IMPRESSION: No acute chest process with few incidental findings (Right hemidiaphragm approximately 3 cm higher than the left. Clear lungs. Mild multilevel thoracic spine degenerative spurring. Upper abdominal presumed cholecystectomy clips) * Bilateral knee x-ray-no acute fracture seen Discharge Diagnoses: Chest pains most likely costochrondritis Rectal bleeding: GI consulted, input noted, likely anorectal in orgin with constipation, miralax and dulcolax and prn senna Bilateral breast ulcers: mammogram 6 years ago, past due, advised on getting Mammogram H/O PE on Anticoagulation: resume Xarelto Mechanical fall with bilateral knee pains: tylenol for pain Disposition: DC-01 TO HOME OR SELFCARE Time spent for discharge: 31 minutes Core Measure Documentation - Palliative Care Palliative Care/ Comfort Measures: Not Applicable - Core Measures Any of the following diagnoses?: none - VTE Discharge Requirements Deep Vein Thrombosis/Pulmonary Embolism Present on Admission: Yes Has pt received <5 days of overlap therapy or INR<2.0: No (Xarelto) Anticoagulant overlap therapy prescribed at discharge: No Contraindication No Overlap Therapy order at DC: Not Indicated Exam - Physical Exam Narrative exam: Gen: WDWN, NAD, Awake, Alert, Orientated HEENT: NCAT, EOMI, PERRL, OP Clear Neck: supple, no adenopathy, no thyromegaly, no JVD CVS/Heart: RRR, normal S1S2, pulses present bilaterally Chest/Lungs: CTA B, Symmetrical chest expansion, good air entry bilaterally GI/Abdomen: soft, NTND, good bowel sounds, no guarding or rebound /Bladder: no suprapubic tenderness, no CVA or paraspinal tenderness Breast exam with nurse head start director did not appreciated any masses, but excoriatation/ulcers bilateral breast,symmetrical large pundulent breast Extermity/Skin: 2 swallow left breast nickel size ulcers MSK: FROM x 4, bilateral knee tender Neuro: CN 2-12 grossly intact, no new focal deficits Psych: calm - Constitutional Vitals: Temp Pulse Resp BP Pulse Ox 99.6 F 81 18 124/76 92 03/08/19 03:29 03/08/19 10:41 03/08/19 08:03 03/08/19 10:45 03/08/19 03:29 Plan Activity: other (no strenous acitivity) Diet: low salt Additional Instructions: 1) You need a Mammogram, see Dr. Garay or call [facility] Follow up with: GISELLE GOETZ MD [Primary Care Provider] - 7 Days CLEMENCIA GARAY MD [Staff Physician] - 7 Days Forms: Work/School Release Form
--- NOTE | 2019-03-08 13:36 | Event Note ---
Date: 03/08/19 DDimer WNL. MPI today negative for ischemia, EF 57%. Currently stable cardiac status. Pt may discharge home from cardiology standpoint. Recommend pt follow up with her primary cardiology team at [facility] within 1-2 weeks. Dayna MARTINEZ NP / DR. KANG
== END 2019-03-08 19:30 | disposition home or self-care (01) | DRG 378 ==
LOC: ED 17:24 → 4A 22:21
PROVIDERS: ADMIT Internal Medicine; ATTEND Internal Medicine
PROC: 5A09357 Assistance with Respiratory Ventilation, Less than 24 Consecutive Hours, Continuous Positive Airway Pressure (ICD-10-PCS; principal; 2019-03-06)
PROC: 5A09357 Assistance with Respiratory Ventilation, Less than 24 Consecutive Hours, Continuous Positive Airway Pressure (ICD-10-PCS; 2019-03-07)
DX: K62.5 Hemorrhage of anus and rectum (principal); Z68.42 Body mass index [BMI] 45.0-49.9, adult; M94.0 Chondrocostal junction syndrome [Tietze]; S80.02XA Contusion of left knee, initial encounter; W18.39XA Other fall on same level, initial encounter; G47.33 Obstructive sleep apnea (adult) (pediatric); N61.1 Abscess of the breast and nipple; K59.00 Constipation, unspecified; E66.9 Obesity, unspecified; E78.5 Hyperlipidemia, unspecified; F32.9 Major depressive disorder, single episode, unspecified; S80.01XA Contusion of right knee, initial encounter; Y93.89 Activity, other specified; Z86.711 Personal history of pulmonary embolism; Z79.01 Long term (current) use of anticoagulants; Z95.1 Presence of aortocoronary bypass graft; Y92.89 Other specified places as the place of occurrence of the external cause; Y99.8 Other external cause status; Z88.0 Allergy status to penicillin
CPT/HCPCS: 36415; 71046; 78452; 80048; 82550; 82553; 83880; 84484; 85007; 85014; 85018; 85025; 85027; 85379; 93005; 93010; 93017; 93306; 94660; G0378; A9270-GY; A9502; J1200; J2270; J2785; J3010